=== PATIENT | male | born 1995 | race Caucasian/White ===

== ENCOUNTER 2021-12-18 08:45 | Emergency (ER) | payer SELFPAY ==
[~2021-12-18] VITALS: Ht 172.7 cm; Wt 74.8 kg
[2021-12-18 09:07] VITALS: BP 112/80
--- NOTE | 2021-12-18 10:17 | NUR ---
lwbs at this time
== END 2021-12-18 10:17 | disposition left against medical advice (07) ==
LOC: MED 08:45
DX: S61.218A Laceration without foreign body of other finger without damage to nail, initial encounter (principal); Z53.21 Procedure and treatment not carried out due to patient leaving prior to being seen by health care provider; W26.8XXA Contact with other sharp object(s), not elsewhere classified, initial encounter; Y93.89 Activity, other specified; Y92.89 Other specified places as the place of occurrence of the external cause; Y99.8 Other external cause status